=== PATIENT | female | born 1985 | race African-American/Black ===

== ENCOUNTER 2024-09-13 11:10 | Emergency (ER) | payer SELFPAY ==
[~2024-09-13] VITALS: Ht 167.6 cm; Wt 99.0 kg
[2024-09-13 11:25] VITALS: O2SAT 97
[2024-09-13] MEDS ORDERED: ACETAMINOPHEN 325MG TABLET PO ONE (12:45)
[2024-09-13] MEDS ORDERED: ACET-3800 MT (12:58)
[2024-09-13 13:32] VITALS: BP 122/52; PULSE 75; RESP 14; TEMP 37.1; O2SAT 98
== END 2024-09-13 13:39 | disposition home or self-care (01) ==
LOC: ER 11:10
DX: M25.531 Pain in right wrist (principal); M25.532 Pain in left wrist; Z98.890 Other specified postprocedural states
CPT/HCPCS: 73110; 99283